=== PATIENT | female | born 1950 | race Caucasian/White ===

== ENCOUNTER → 2020-01-16 13:31 | Outpatient (BNVA) | payer MEDICARE, SELFPAY | PROVIDERS: PCP Family Medicine; Visit Provider Internal Medicine | DX: R91.8 Other nonspecific abnormal finding of lung field (principal); J44.9 Chronic obstructive pulmonary disease, unspecified; F17.200 Nicotine dependence, unspecified, uncomplicated | CPT/HCPCS: 99202 ==

== ENCOUNTER → 2020-08-04 11:23 | Outpatient (BNVA) | payer MEDICARE, SELFPAY | PROVIDERS: PCP Family Medicine; Visit Provider Internal Medicine | DX: J44.9 Chronic obstructive pulmonary disease, unspecified (principal); R91.8 Other nonspecific abnormal finding of lung field; F17.200 Nicotine dependence, unspecified, uncomplicated | CPT/HCPCS: 99212 ==

== ENCOUNTER → 2021-11-30 14:14 | Outpatient (BNVA) | payer MEDICARE, SELFPAY | PROVIDERS: PCP Family Medicine; Visit Provider Internal Medicine | DX: J44.9 Chronic obstructive pulmonary disease, unspecified (principal); R91.8 Other nonspecific abnormal finding of lung field; F17.210 Nicotine dependence, cigarettes, uncomplicated | CPT/HCPCS: 94010; 99212 ==

== ENCOUNTER 2022-01-21 13:42 | Outpatient (REF) | payer MEDICARE, SELFPAY ==
--- NOTE | ~2022-01-21 | CT_ITS ---
EXAMINATION: CT CHEST SCREENING CLINICAL INFORMATION: Current smoker with 1 pack per day x55 years. COMPARISON: CT chest 10/03/2019. TECHNIQUE: Multidetector volumetric CT imaging of the chest is performed without contrast using low dose technique. Additional 2D coronal and sagittal reformatted images and axial 3D maximum intensity projection (MIP) images are generated on the CT workstation. This CT examination was performed using dose optimization techniques as appropriate, variously including the following: *Automated exposure control *Adjustment of mA and/or kV according to patient size (this includes techniques or standardized protocols for targeted exams where dose is matched to indication/reason for exam; i.e. extremities or head) *Use of iterative reconstruction technique DLP: 40 mGy-cm FINDINGS: LUNGS: There is centrilobular emphysema with bilateral apical pleural thickening. There is a peripheral-based linear density in the left upper lobe (axial image 20/4). There are atelectatic changes or scarring in the right middle lobe and lingula. There is a calcified nodule in the right middle lobe (axial image 39/4). Also visualized are a few scattered micronodules throughout both lower lobes. MEDIASTINUM: The thyroid lobes are asymmetric with a slightly enlarged left lobe. The central trachea and the bronchi are widely patent. Heart size and the great vessels are normal caliber. There is no pericardial effusion. CORONARY ARTERY CALCIFICATION: None visualized on this study. PLEURA: There is no pleural effusion. No pleural mass or thickening. AXILLA: No lymphadenopathy. UPPER ABDOMEN: There is a central hypodensity in the right hepatic lobe, stable. Otherwise, rest of the visualized liver, spleen, pancreas and bilateral adrenal glands are unremarkable. OSSEOUS STRUCTURES: Unremarkable. CT/CT lung screening IMPRESSION: 1. Centrilobular emphysema with bilateral apical pleural thickening. There is a calcified nodule and few scattered noncalcified micronodules bilaterally which are stable. ASSESSMENT: Lung-RADS category 2: Benign RECOMMENDATION: Low-dose annual CT chest.
== END 2022-01-21 13:43 | disposition home or self-care (01) ==
LOC: HO.CT 13:42
PROVIDERS: PCP Family Medicine; Visit Provider Physician Assistant Medical
DX: Z12.2 Encounter for screening for malignant neoplasm of respiratory organs (principal); F17.210 Nicotine dependence, cigarettes, uncomplicated
CPT/HCPCS: 71271; G0296

== ENCOUNTER 2023-05-18 09:49 | Outpatient (AMB) | payer MEDICARE, SELFPAY ==
[2023-05-18 10:05] VITALS: BP 137/64; PULSE 66; O2SAT 99; BMI 26.1
--- NOTE | 2023-05-18 10:05 | MHC.OFFVIS ---
Intake Vital Signs 05/18/23 10:05 Height 4 ft 10.5 in Weight 127 lb BMI 26.1 BP 137/64 Blood Pressure Location Lt brachial Position Sitting Pulse 66 Pulse Source Doppler Pulse Oximetry (%) 99 Oxygen Delivery Method Room Air Intake Visit Reasons: pulmonary nodule Allergies erythromycin base Adverse Reaction (Severe, Verified 05/18/23 10:32) Nausea Do you need a note to return to daycare/school/sports/work: No HPI pulmonary nodule HPI Details This 72 years old female, lifelong smoker , comes for follow-up after 6 months. She states that she does have intermittent cough which is mostly related to her smoking. She denies any significant. Shortness of breath or wheezing She does not need to use any bronchodilator inhalers. Still smoking about. 15 cigarettes a day She she has intermittent cough related to smoking. She wants to discuss about quitting smoking. She is in annual lung screening program but missed having the CT scan last year. [facility] Medical History Anxiety Hypercholesterolemia Osteopenia GERD (gastroesophageal reflux disease) Smoker Pulmonary nodules/lesions, multiple COPD (chronic obstructive pulmonary disease) Surgical History History of hand surgery History of inguinal hernia repair History of esophagogastroduodenoscopy (EGD) History of colonoscopy Social History Patient Tobacco Use Status: Current everyday Tobacco user Tobacco use type: Cigarette Cigarettes Per Day: 15 Years Smoked: (current smoker, onset 18yo, 3/4-1ppd x 53yrs, 40pyh) Review of Systems Const All systems reviewed & are unremarkable except as noted in HPI and below ENT Reports nasal congestion (MILD , SEASONAL , ) Card Denies chest pain, Denies leg edema and Denies dyspnea on exertion Resp Reports cough (MILD OCCASIONAL ), Denies dyspnea on exertion and Denies wheezing GI Reports heartburn (CONTROLLED ) Musc Reports no additional complaints Neuro Reports no additional complaints Psych Reports no additional complaints Endo Reports no additional complaints Aller/Immun Denies wheezing Physical Exam Vital Signs: Last Vital Signs Pulse 66 05/18/23 10:05 BP 137/64 05/18/23 10:05 Pulse Ox 99 05/18/23 10:05 Oxygen Delivery Method Room Air 05/18/23 10:05 BMI result Body Mass Index 26.1 Const General: healthy appearing, comfortable, no acute distress, alert and awake Orientation/consciousness: patient oriented x3 HEENT Head: Yes normal to inspection General nose exam: No nasal polyps present and No nasal discharge present Face and sinus: Yes sinuses nontender Mouth: oropharynx normal Throat: Yes posterior oropharynx normal Eyes General: appearance normal, both eyes and all related structures Neck Neck: Yes normal visual inspection, Yes no lymphadenopathy, Yes trachea midline and Yes no JVD Thyroid: Thyroid normal Chest Chest palpation & inspection: normal inspection of the chest and normal palpation of entire chest wall Resp Auscultation: clear to auscultation bilaterally, no crackles and no wheezes Cardio Palpation: normal PMI Rate: regular rate Rhythm: regular rhythm Heart sounds: no gallops and no murmurs Peripheral pulses: Peripheral pulses 2+ throughout GI Palpation (GI): Soft to palpation, nontender, No hepatosplenomegaly present and no masses Auscultation: normal bowel sounds Back/Spine/Pelvis Thoracic/Lumbar Spine: thoracic and lumbar spine normal to inspection Skin General skin exam: no rashes or lesions noted Neuro General: patient oriented x3 and no focal motor deficits Cranial nerves: Yes CN's II-XII intact bilaterally Extrem General: Yes normal to inspection, Yes no clubbing, cyanosis or edema, Yes no calf tenderness and No venous stasis dermatitis Psych Appearance: grossly normal Mental Status: mental status grossly normal Speech and movement: Normal speech and movement present Assessment & Plan Assessment & Plan (1) COPD (chronic obstructive pulmonary disease): Comment: COPD IS VERY MILD AND CURRENTLY ASYMPTOMATIC. HAS NOT NEEDED TO USE THE BRONCHODILATOR INHALER Code(s): J44.9 - Chronic obstructive pulmonary disease, unspecified Plan: NO NEED OF ANY BRONCHODILATOR INHALER ON A REGULAR BASIS. JUST QUIT SMOKING. (2) Pulmonary nodules/lesions, multiple: Comment: SHE HAS SMALL PULMONARY NODULES, AND IS HAVING ANNUAL CT SCAN OF THE LUNGS. HER LAST CT SCAN WAS ON 01/21/22 , BENIGN . CATEGORY-[address] SCAN LAST YEAR. Code(s): R91.8 - Other nonspecific abnormal finding of lung field Plan: PATIENT IS RE -REGISTERED IN THE ANNUAL LUNG SCREENING PROGRAM. ENCOURAGED THAT SHE SHOULD HAVE LOW-DOSE CT SCAN ON A YEARLY BASIS. (3) Nicotine dependence, cigarettes, uncomplicated: Comment: (current smoker, onset 18yo, 3/4-1ppd x 53yrs, 40pyh) still smoking about 15 cigarettes a day. Code(s): F17.210 - Nicotine dependence, cigarettes, uncomplicated Plan: Had a long discussion about quitting smoking. She finds it hard to quit, but she would try to cut down the number of cigarettes. I have set up a goal of cutting down to 10 cigarettes a day for the next few months. She does not want to use nicotine patch but would like to use the lozenges. Prescription is sent for nicotine Polacrilex buccal lozenges , that she can use 3-4 per day. Medications: New nicotine (polacrilex) 4 mg buccal Q4H 30 days PRN 108 ea 5RF nicotine cravings Coding Level of Care Code Est Pt Level 3 (39437) Diagnoses COPD (chronic obstructive pulmonary disease) J44.9 Pulmonary nodules/lesions, multiple R91.8 Nicotine dependence, cigarettes, uncomplicated F17.210
== END 2023-05-18 10:30 | disposition home or self-care (01) ==
PROVIDERS: PCP Family Medicine; Visit Provider Internal Medicine
DX: J44.9 Chronic obstructive pulmonary disease, unspecified (principal); R91.8 Other nonspecific abnormal finding of lung field; F17.210 Nicotine dependence, cigarettes, uncomplicated
CPT/HCPCS: 99213

== ENCOUNTER → 2023-05-18 09:49 | Outpatient (BNVA) | payer MEDICARE, SELFPAY | PROVIDERS: PCP Family Medicine; Visit Provider Internal Medicine | DX: J44.9 Chronic obstructive pulmonary disease, unspecified (principal); R91.8 Other nonspecific abnormal finding of lung field; F17.210 Nicotine dependence, cigarettes, uncomplicated | CPT/HCPCS: 99212 ==

== ENCOUNTER 2023-07-11 14:39 | Outpatient (REF) | payer MEDICARE, SELFPAY ==
--- NOTE | ~2023-07-11 | CT_ITS ---
EXAMINATION: CT CHEST SCREENING CLINICAL INFORMATION: Nicotine dependence, cigarettes, uncomplicated. The patient is a current smoker with a 50 pack-year history of smoking. COMPARISON: CT chest 01/21/2022. TECHNIQUE: Multidetector volumetric CT imaging of the chest is performed on a Siemens SOMATOM Definition scanner without contrast using low dose technique. Additional 2D coronal and sagittal reformatted images and axial 3D maximum intensity projection (MIP) images are generated on the CT workstation. This CT examination was performed using dose optimization techniques as appropriate, variously including the following: *Automated exposure control. *Adjustment of mA and/or kV according to patient size (this includes techniques or standardized protocols for targeted exams where dose is matched to indication/reason for exam; i.e. extremities or head). *Use of iterative reconstruction technique. DLP: 35 mGy-cm FINDINGS: LUNGS: There is biapical pleural-parenchymal scarring again seen. Scarring/atelectasis is present in the lingula and right middle lobe. [id number] emphysematous changes are present. Mild bronchial thickening is present PULMONARY NODULES: Two small pulmonary nodules are present, unchanged from prior, both measuring 3 mm in the left upper lobe (5:108 and 142 compare prior 5:126 and 160). No new, increasing size or concerning nodules are seen. MEDIASTINUM: The mediastinum is normal. CORONARY ARTERY CALCIFICATION: None visualized on this study. PLEURA: There is no pleural effusion. No pleural mass or thickening. AXILLA: No lymphadenopathy. UPPER ABDOMEN: Some scarring is seen at the upper pole of the right kidney and unchanged. No other intra-abdominal abnormality is detected. OSSEOUS STRUCTURES: Mild degenerative changes are present. CT/CT lung screening IMPRESSION: Benign unchanged pulmonary nodules. No evidence of malignancy. ASSESSMENT: Lung-RADS Category 2: Benign. RECOMMENDATION: Routine annual low-dose CT screening in 12 months.
== END 2023-07-11 14:40 | disposition home or self-care (01) ==
LOC: HO.CT 14:39
PROVIDERS: PCP Family Medicine; Visit Provider Nurse Practitioner Family
DX: Z12.2 Encounter for screening for malignant neoplasm of respiratory organs (principal); F17.210 Nicotine dependence, cigarettes, uncomplicated
CPT/HCPCS: 71271

== ENCOUNTER 2023-11-16 10:51 | Outpatient (AMB) | payer MEDICARE, SELFPAY ==
--- NOTE | 2023-11-16 11:10 | MHC.OFFVIS ---
Vital Signs 11/16/23 11:11 Height 4 ft 10.5 in Weight 123 lb 7.342 oz BMI 25.4 BP 112/70 Blood Pressure Location Lt brachial Position Sitting Pulse 73 Pulse Source Pulse Oximeter Pulse Oximetry (%) 98 Oxygen Delivery Method Room Air Intake Visit Reasons: pulmonary nodule Intake Note: pt is here for a follow up of pulm nodules, and is feeling well no problems with breathing. 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 CONTINUES TO SMOKE 15 CIGARETTES A DAY, HAS NOT BEEN ABLE TO CUT DOWN OR STOP. HAS ONLY MINIMAL INTERMITTENT COUGH NO WHEEZING OR SHORTNESS OF BREATH. SHE HARDLY NEEDS TO USE ANY INHALER. SHE IS GETTING ANNUAL LUNG SCAN. [facility] Medical History Anxiety Hypercholesterolemia Osteopenia GERD (gastroesophageal reflux disease) Smoker Pulmonary nodules/lesions, multiple COPD (chronic obstructive pulmonary disease) Surgical History History of hand surgery History of inguinal hernia repair History of esophagogastroduodenoscopy (EGD) History of colonoscopy Social History Patient Tobacco Use Status: Current everyday Tobacco user Tobacco use type: Cigarette Cigarettes Per Day: 15 Years Smoked: (current smoker, onset 18yo, 3/4-1ppd x 53yrs, 40pyh) Review of Systems Const All systems reviewed & are unremarkable except as noted in HPI and below ENT Reports nasal congestion (MILD , SEASONAL , ) Card Denies chest pain, Denies leg edema and Denies dyspnea on exertion Resp Reports cough (MILD OCCASIONAL ), Denies dyspnea on exertion and Denies wheezing GI Reports heartburn (CONTROLLED ) Musc Reports no additional complaints Neuro Reports no additional complaints Psych Reports no additional complaints Endo Reports no additional complaints Aller/Immun Denies wheezing Physical Exam Vital Signs: Last Vital Signs Pulse 73 11/16/23 11:11 BP 112/70 11/16/23 11:11 Pulse Ox 98 11/16/23 11:11 Oxygen Delivery Method Room Air 11/16/23 11:11 BMI result Body Mass Index 25.4 Const General: healthy appearing, comfortable, no acute distress, alert and awake Orientation/consciousness: patient oriented x3 HEENT Head: Yes normal to inspection General nose exam: No nasal polyps present and No nasal discharge present Face and sinus: Yes sinuses nontender Mouth: oropharynx normal Throat: Yes posterior oropharynx normal Eyes General: appearance normal, both eyes and all related structures Neck Neck: Yes normal visual inspection, Yes no lymphadenopathy, Yes trachea midline and Yes no JVD Thyroid: Thyroid normal Chest Chest palpation & inspection: normal inspection of the chest and normal palpation of entire chest wall Resp Auscultation: clear to auscultation bilaterally, no crackles and no wheezes Cardio Palpation: normal PMI Rate: regular rate Rhythm: regular rhythm Heart sounds: no gallops and no murmurs Peripheral pulses: Peripheral pulses 2+ throughout GI Palpation (GI): Soft to palpation, nontender, No hepatosplenomegaly present and no masses Auscultation: normal bowel sounds Back/Spine/Pelvis Thoracic/Lumbar Spine: thoracic and lumbar spine normal to inspection Skin General skin exam: no rashes or lesions noted Neuro General: patient oriented x3 and no focal motor deficits Cranial nerves: Yes CN's II-XII intact bilaterally Extrem General: Yes normal to inspection, Yes no clubbing, cyanosis or edema, Yes no calf tenderness and No venous stasis dermatitis Psych Appearance: grossly normal Mental Status: mental status grossly normal Speech and movement: Normal speech and movement present Results Reviewed Results Reviewed: RESULTS OF LOW-DOSE CT SCAN ON 07/11/2023 REVIEWED WITH HER. SHE HAS SMALL BENIGN PULMONARY NODULES WHICH REMAIN UNCHANGED, LUNGS -RAD CATEGORY 2, BENIGN Assessment & Plan Assessment & Plan (1) COPD (chronic obstructive pulmonary disease): Comment: COPD IS VERY MILD AND CURRENTLY ASYMPTOMATIC. HAS NOT NEEDED TO USE THE BRONCHODILATOR INHALER Code(s): J44.9 - Chronic obstructive pulmonary disease, unspecified Category: Medical Plan: KEEP ALBUTEROL HFA ON HAND AND USE IT ONLY P.R.N. IF THERE IS ANY BOUT OF SUSTAINED COUGH OR WHEEZING. (2) Nicotine dependence, cigarettes, uncomplicated: Comment: (current smoker, onset 18yo, 3/4-1ppd x 53yrs, 40pyh) still smoking about 15 cigarettes a day. Code(s): F17.210 - Nicotine dependence, cigarettes, uncomplicated Category: Medical Plan: TALKED TO HER ABOUT QUITTING. SHE KNOWS HERSELF, HAS NOT BEEN ABLE TO CUT DOWN OR QUIT. I ADVISED HER TO CUT DOWN TO 10 CIGARETTES A DAY, USE THE SAME CIGARETTE A FEW TIMES. SHE SEEMS TO BE MOTIVATED. (3) Pulmonary nodules/lesions, multiple: Comment: SHE HAS SMALL PULMONARY NODULES, AND IS HAVING ANNUAL CT SCAN OF THE LUNGS. HER LAST CT SCAN WAS ON 01/21/22 , BENIGN . CATEGORY-[address] SCAN LAST YEAR. Code(s): R91.8 - Other nonspecific abnormal finding of lung field Category: Medical Plan: ADVISED TO CONTINUE HAVING ANNUAL LUNG SCREENING. Coding Level of Care Code Est Pt Level 3 (27481) Diagnoses COPD (chronic obstructive pulmonary disease) J44.9 Nicotine dependence, cigarettes, uncomplicated F17.210 Pulmonary nodules/lesions, multiple R91.8
[2023-11-16 11:11] VITALS: BP 112/70; PULSE 73; O2SAT 98; BMI 25.4
== END 2023-11-16 11:31 | disposition home or self-care (01) ==
PROVIDERS: PCP Family Medicine; Visit Provider Internal Medicine
DX: J44.9 Chronic obstructive pulmonary disease, unspecified (principal); F17.210 Nicotine dependence, cigarettes, uncomplicated; R91.8 Other nonspecific abnormal finding of lung field
CPT/HCPCS: 99213

== ENCOUNTER → 2023-11-16 10:51 | Outpatient (BNVA) | payer MEDICARE, SELFPAY | PROVIDERS: PCP Family Medicine; Visit Provider Internal Medicine | DX: J44.9 Chronic obstructive pulmonary disease, unspecified (principal); R91.8 Other nonspecific abnormal finding of lung field; F17.210 Nicotine dependence, cigarettes, uncomplicated | CPT/HCPCS: 99212 ==

== ENCOUNTER 2024-05-21 11:02 | Outpatient (AMB) | payer MEDICARE, SELFPAY ==
[2024-05-21 11:47] VITALS: BP 120/70; PULSE 60; O2SAT 99; BMI 25.9
--- NOTE | 2024-05-21 11:47 | MHC.OFFVIS ---
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 She has cut down her smoking to 10 cigarettes a day. Claims that she has only minimal intermittent cough. She denies any shortness of breath on walking or wheezing. She is trying to further cut down the cigarettes, but not ready to quit completely. She does participate in annual lung screening program. .Weight is stable [facility] Medical History Anxiety Hypercholesterolemia Osteopenia GERD (gastroesophageal reflux disease) Smoker Pulmonary nodules/lesions, multiple COPD (chronic obstructive pulmonary disease) Surgical History History of hand surgery History of inguinal hernia repair History of esophagogastroduodenoscopy (EGD) History of colonoscopy Social History Patient Tobacco Use Status: Current everyday Tobacco user Tobacco use type: Cigarette Cigarettes Per Day: 10 Years Smoked: (current smoker, onset 18yo, 3/4-1ppd x 53yrs, 40pyh) Review of Systems Const All systems reviewed & are unremarkable except as noted in HPI and below ENT Reports nasal congestion (MILD , SEASONAL , ) Card Denies chest pain, Denies leg edema and Denies dyspnea on exertion Resp Reports cough (MILD OCCASIONAL ), Denies dyspnea on exertion and Denies wheezing GI Reports heartburn (CONTROLLED ) Musc Reports no additional complaints Neuro Reports no additional complaints Psych Reports no additional complaints Endo Reports no additional complaints Aller/Immun Denies wheezing Physical Exam Vital Signs: Last Vital Signs Pulse 60 05/21/24 11:47 BP 120/70 05/21/24 11:47 Pulse Ox 99 05/21/24 11:47 Oxygen Delivery Method Room Air 05/21/24 11:47 BMI result Body Mass Index 25.9 Const General: healthy appearing, comfortable, no acute distress, alert and awake Orientation/consciousness: patient oriented x3 HEENT Head: Yes normal to inspection General nose exam: No nasal polyps present and No nasal discharge present Face and sinus: Yes sinuses nontender Mouth: oropharynx normal Throat: Yes posterior oropharynx normal Eyes General: appearance normal, both eyes and all related structures Neck Neck: Yes normal visual inspection, Yes no lymphadenopathy, Yes trachea midline and Yes no JVD Thyroid: Thyroid normal Chest Chest palpation & inspection: normal inspection of the chest and normal palpation of entire chest wall Resp Auscultation: clear to auscultation bilaterally, no crackles and no wheezes Cardio Palpation: normal PMI Rate: regular rate Rhythm: regular rhythm Heart sounds: no gallops and no murmurs Peripheral pulses: Peripheral pulses 2+ throughout GI Palpation (GI): Soft to palpation, nontender, No hepatosplenomegaly present and no masses Auscultation: normal bowel sounds Back/Spine/Pelvis Thoracic/Lumbar Spine: thoracic and lumbar spine normal to inspection Skin General skin exam: no rashes or lesions noted Neuro General: patient oriented x3 and no focal motor deficits Cranial nerves: Yes CN's II-XII intact bilaterally Extrem General: Yes normal to inspection, Yes no clubbing, cyanosis or edema, Yes no calf tenderness and No venous stasis dermatitis Psych Appearance: grossly normal Mental Status: mental status grossly normal Speech and movement: Normal speech and movement present Results Reviewed Results Reviewed: LDCT chest IMPRESSION: Benign unchanged pulmonary nodules. No evidence of malignancy. ASSESSMENT: Lung-RADS Category 2: Benign. RECOMMENDATION: Routine annual low-dose CT screening in 12 months. Assessment & Plan Assessment & Plan (1) Nicotine dependence, cigarettes, uncomplicated: Comment: (current smoker, onset 18yo, 3/4-1ppd x 53yrs, 40pyh) still smoking about 10 cigarettes a day. Code(s): F17.210 - Nicotine dependence, cigarettes, uncomplicated Category: Medical Plan: Advised to cut down the number of cigarettes, gradually with the goal to quit completely in the next few months. (2) COPD (chronic obstructive pulmonary disease): Comment: COPD IS VERY MILD AND CURRENTLY ASYMPTOMATIC. HAS NOT NEEDED TO USE THE BRONCHODILATOR INHALER Code(s): J44.9 - Chronic obstructive pulmonary disease, unspecified Category: Medical Plan: Just watch for any symptoms if so then we can put her on some bronchodilator inhalers but at this time she does not need any. (3) Pulmonary nodules/lesions, multiple: Comment: SHE HAS SMALL PULMONARY NODULES, AND IS HAVING ANNUAL CT SCAN OF THE LUNGS. HER LAST CT SCAN WAS ON , BENIGN . CATEGORY-2 Code(s): R91.8 - Other nonspecific abnormal finding of lung field Category: Medical Plan: Advised that she should continue to get annual lung CT scan . Coding Level of Care Code Est Pt Level 3 (30784) Diagnoses Nicotine dependence, cigarettes, uncomplicated F17.210 COPD (chronic obstructive pulmonary disease) J44.9 Pulmonary nodules/lesions, multiple R91.8
== END 2024-05-21 12:06 | disposition home or self-care (01) ==
LOC: HO.HPS 11:02
PROVIDERS: PCP Family Medicine; Visit Provider Internal Medicine
DX: F17.210 Nicotine dependence, cigarettes, uncomplicated (principal); J44.9 Chronic obstructive pulmonary disease, unspecified; R91.8 Other nonspecific abnormal finding of lung field
CPT/HCPCS: 99213

== ENCOUNTER → 2024-05-21 11:02 | Outpatient (BNVA) | payer MEDICARE, SELFPAY | PROVIDERS: PCP Family Medicine; Visit Provider Internal Medicine | DX: J44.9 Chronic obstructive pulmonary disease, unspecified (principal); R91.8 Other nonspecific abnormal finding of lung field; F17.210 Nicotine dependence, cigarettes, uncomplicated | CPT/HCPCS: 99212 ==

== ENCOUNTER 2024-07-22 15:56 | Outpatient (REF) | payer MEDICARE, SELFPAY ==
--- NOTE | ~2024-07-22 | CT_ITS ---
CLINICAL HISTORY: F17.210 - Nicotine dependence, cigarettes, uncomplicated CT lung cancer screening (LDCT) Comparison: CT/NE/SR - CT LUNG SCREENING - 07/11/23 14:48 EDT Technique: Axial CT images of the chest using low-dose technique. Referring provider counseled the patient on shared decision-making for LDCT screening. Additional counseling was provided on smoking cessation. Effective radiation dose total: DLP 25.6 mGycm, CTDIvol 0.9 mGy. Findings: There is severe centrilobular emphysema. Previously described nodules are unchanged. No new nodules are noted. Coronary artery calcifications: None Limited upper abdomen: Unremarkable There is stable scarring at the right base. Impression: LungRADS 2 - Benign Appearance: Continue annual screening with low dose Chest CT in 12 months. ##L2# Category 1: Normal; continue annual screening Category 2: Benign appearance or behavior, continue annual screening Category 3: Probably benign, [address] recommended Category 4A: Suspicious, [address] recommended; may consider PET/CT Category 4B: Suspicious, Additional diagnostics and/or tissue sampling recommended Category 4X: Suspicious, Additional diagnostics and/or tissue sampling recommended Category 0: Recalls (incomplete screen due to Incomplete coverage, Noise, Respiratory motion, Expiration, Obscured by acute abnormality) This document has been electronically signed by: Eric Keller MD on 07/24/2024 08:21:18
== END 2024-07-22 15:57 | disposition home or self-care (01) ==
LOC: HO.CT 15:56
PROVIDERS: PCP Family Medicine; Visit Provider Physician Assistant Medical
DX: Z12.2 Encounter for screening for malignant neoplasm of respiratory organs (principal); F17.210 Nicotine dependence, cigarettes, uncomplicated
CPT/HCPCS: 71271

== ENCOUNTER → 2024-07-22 15:58 | Outpatient (BNV) | payer MEDICARE, SELFPAY | PROVIDERS: PCP Family Medicine; Visit Provider Radiology Diagnostic Radiology | DX: F17.210 Nicotine dependence, cigarettes, uncomplicated (principal) | CPT/HCPCS: 71271 ==